=== PATIENT | male | born 1945 | race Asian ===

== ENCOUNTER 2017-02-26 10:28 | Day surgery (SDC) | payer BC, MEDICARE ==
[~2017-02-26] VITALS: Ht 170.2 cm; Wt 77.3 kg
[2017-02-26] VITALS (569 sets, daily range): BP systolic 152–203; BP diastolic 78–99; PULSE 50–70; TEMP 97.2–98.6; O2SAT 96–100
[2017-02-26] MEDS ORDERED: PRILOSEC 20MG20 MG PO (11:15)
[2017-02-26] MEDS ORDERED: LIPITOR 80MG80 MG PO (11:15)
[2017-02-26] MEDS ORDERED: GLUCOPHAGE XR500 M1 PO (11:16)
[2017-02-26] MEDS ORDERED: ASPIRIN 81M81 MG/TA2 PO (11:17)
[2017-02-26] MEDS ORDERED: LOPRESSOR 225 MG/TAB PO (11:17)
[2017-02-26 11:20] LABS: INR 1.1 (0.8-3.0); PROTHROMBIN TIME 12.5 SECONDS (9.7-12.8)
[2017-02-26 11:25] LABS: CALCIUM 8.9 mg/dL (8.4-10.2); CREATININE, serum 0.74 mg/dL (0.66-1.25); POTASSIUM 3.8 mmol/L (3.4-5.0)
[2017-02-26 11:35] LABS: HEMATOCRIT 44.4 % (42.0-52.0); HEMOGLOBIN 15.1 g/dl (13.5-18.0); MEAN CELL VOLUME 93 fl (80.0-100.0); MEAN CORPUSCULAR HEMOGLOBIN 32 pg (27.0-31.0); MEAN CORPUSCULAR HGB CONC 34 g/dl (33.0-37.0); MEAN PLATELET VOLUME 10.2 fl (7.4-10.4); PLATELET COUNT 194 K/mm3 (130-400); RED BLOOD COUNT 4.77 M/mm3 (4.20-5.60); REDCELL DISTRIBUTION WIDTH-CV 13.3 % (11.5-14.5); WHITE BLOOD COUNT 4.6 K/mm3 (4.8-10.8)
[2017-02-27] VITALS (892 sets, daily range): BP systolic 140–156; BP diastolic 58–79; PULSE 56–60; TEMP 97.8–98.1; O2SAT 94–100
[2017-02-27 05:21] LABS: BASO # 0.1 (0.0-0.2); BASO % 0.8 % (0.0-2.0); EOS # 0.2 (0.0-0.7); EOS % 3.2 % (0-4.0); GRAN # 4.2 (1.4-6.5); GRAN % 58.5 % (42.2-75.2); HEMATOCRIT 42.5 % (42.0-52.0); HEMOGLOBIN 14.4 g/dl (13.5-18.0); MEAN CELL VOLUME 94 fl (80.0-100.0); MEAN CORPUSCULAR HEMOGLOBIN 32 pg (27.0-31.0); MEAN CORPUSCULAR HGB CONC 34 g/dl (33.0-37.0); MEAN PLATELET VOLUME 9.8 fl (7.4-10.4); MONO # 0.7 (0.1-0.6); MONO % 9.2 % (1.7-9.3); PLATELET COUNT 185 K/mm3 (130-400); RED BLOOD COUNT 4.53 M/mm3 (4.20-5.60); REDCELL DISTRIBUTION WIDTH-CV 13.2 % (11.5-14.5); WHITE BLOOD COUNT 7.2 K/mm3 (4.8-10.8)
[2017-02-27 05:33] LABS: CALCIUM 8.3 mg/dL (8.4-10.2); CREATININE, serum 0.73 mg/dL (0.66-1.25); POTASSIUM 3.6 mmol/L (3.4-5.0)
[2017-02-27] MEDS ORDERED: NITROSTAT0.4 MG/TAB SL (14:01)
[2017-02-27] MEDS ORDERED: BRILINTA90 MG PO (14:01)
== END 2017-02-27 15:05 | disposition home or self-care (01) ==
LOC: COL.CAR 10:28 → ICU 13:55 → COL.CAR 02-27 15:05
PROVIDERS: Internal Medicine Interventional Cardiology
DX: I25.119 Atherosclerotic heart disease of native coronary artery with unspecified angina pectoris (principal); I10 Essential (primary) hypertension; R94.39 Abnormal result of other cardiovascular function study; E11.9 Type 2 diabetes mellitus without complications; Z79.84 Long term (current) use of oral hypoglycemic drugs; Z87.891 Personal history of nicotine dependence
CPT/HCPCS: OP; C1725; C1760; C1769; C1874; C1887; C1894; C9600; J0583; J2250; J3010; J7030; Q9967